=== PATIENT | male | born 1970 | race Caucasian/White ===

== ENCOUNTER 2017-02-03 20:24 | Inpatient (IN) | payer MEDICAID ==
[~2017-02-03] VITALS: Ht 182.9 cm; Wt 86.2 kg
[2017-02-03 20:31] VITALS: BP 120/76
[2017-02-03 22:40] LABS: HEMATOCRIT 27.8 % (36-52); HEMOGLOBIN 8.9 g/dL (12.0-18.0); MEAN CORPUSCULAR HEMOGLOBIN 28 pg (27-31); MEAN CORPUSCULAR HGB CONC 32 g/dL (33-37); MEAN CORPUSCULAR VOLUME 87 fL (80-94); PLATELET COUNT (AUTO) 135 K/uL (140-450); RED BLOOD CELL COUNT(AUTO) 3.18 MIL/uL (4.20-6.10); RED CELL DISTRIBUTION WIDTH 18.8 % (11.6-13.7); WHITE BLOOD COUNT (AUTO) 5.2 K/uL (4.8-10.8)
[2017-02-03 22:53] LABS: AMPHETAMINE, URINE POS. ng/ml (NEG <=1000); BARBITURATE, URINE NEG. ng/ml (NEG <=200); BENZODIAZEPINE, URINE NEG. ng/mL (NEG <=200); CANNABINOID, URINE NEG. ng/mL (NEG <=50); COCAINE, URINE NEG. ng/mL (NEG <=300); OPIATE, URINE NEG. ng/mL (NEG <=2000); PHENCYCLIDINE SCREEN,URINE NEG. ng/mL (NEG <=25)
[2017-02-03 22:53] LABS: ALCOHOL, BLOOD 71 mg/dL (<3)
[2017-02-03 22:54] LABS: BAND % (MANUAL) 0 % (0-8); EOSINOPHILS % (MANUAL) 7 % (0-4); LYMPHOCYTES % (MANUAL) 52 % (20-46); MONOCYTES % (MANUAL) 11 % (5-12); NEUTROPHILS % (MANUAL) 30 (43-65)
[2017-02-03 22:55] LABS: ACETAMINOPHEN < 0.5 ug/ml (10-30); SALICYLATE < 2.8 mg/dL (2.8-20.0)
[2017-02-03 22:58] LABS: ALBUMIN 2.2 g/dL (3.4-5.0); ANION GAP 7.6 (8-16); CALCIUM 7.1 mg/dL (8.5-10.1); CARBON DIOXIDE 26.6 mmol/L (21-32); CREATININE 0.9 mg/dL (0.7-1.3); INR 1.5 (0.8-1.2); PARTIAL THROMBOPLASTIN TIME 31.2 secs (22-35.6); POTASSIUM 3.2 mmol/L (3.5-5.1); PROTHROMBIN TIME 14.9 secs (10.8-13.4); TOTAL BILIRUBIN 0.6 mg/dL (0.0-1.0); TOTAL PROTEIN, SERUM 6.6 g/dL (6.4-8.2)
[2017-02-04] VITALS (7 sets, daily range): BP systolic 102–142; BP diastolic 59–93
[2017-02-04] MEDS ORDERED: ONDANSETRON 4 MG/2 ML VIAL IVP PRN
[2017-02-04] MEDS ORDERED: DOCUSATE SODIUM 100 MG GELCAP PO PRN
[2017-02-04] MEDS ORDERED: HYDROcodone/APAP 5/325 MG 1 TAB TAB PO PRN
[2017-02-04] MEDS ORDERED: ACETAMINOPHEN 325 MG TAB PO PRN
[2017-02-04] MEDS ORDERED: LISINOPRIL 10 MG TAB PO SCH (00:05)
[2017-02-04] MEDS ORDERED: METOPROLOL 25 MG TAB PO SCH (00:05)
[2017-02-04] MEDS ORDERED: hePARIN / DEXT 5% PREMIX 250 ML IV SCH (00:05)
[2017-02-04] MEDS ORDERED: HEPARIN PER PHARMACY MC PRN (00:05)
[2017-02-04] MEDS ORDERED: ATORVASTATIN 20 MG TAB PO SCH (00:05)
[2017-02-04] MEDS ORDERED: ECOTRIN 81 MG TABEC PO SCH (00:05)
[2017-02-04 00:27] LABS: APPEARANCE,URINE CLEAR (CLEAR); BILIRUBIN,URINE NEGATIVE (NEGATIVE); BLOOD, URINE NEGATIVE (NEGATIVE); COLOR,URINE YELLOW (YELLOW); LEUKOCYTE ESTERASE ,URINE NEGATIVE (NEGATIVE); NITRITE, URINE NEGATIVE (NEGATIVE); PROTEIN,URINE NEGATIVE (NEGATIVE); UGLUCOSE NEGATIVE (NEGATIVE); UROBILINOGEN,URINE 0.2 EU/dL (0.2 - 1)
[2017-02-04 00:49] LABS: BACTERIA,URINE None Seen /HPF (None Seen); RBC,URINE NONE SEEN /HPF (0-5); SQUAMOUS EPITHELIAL CELL,UR 0-3 (FEW) /LPF (0-3 (FEW)); WBC,URINE NONE SEEN /HPF (0-5)
[2017-02-04] MEDS ORDERED: POTASSIUM CHLORIDE 10 MEQ TABER PO SCH ×2 (01:00→09:24)
[2017-02-04 01:23] LABS: CHOL/HDL RATIO 5.8 (1-4.5); FREE T4 (FREE THYROXINE) 1.12 ng/dL (0.76-1.46); MAGNESIUM 1.7 mg/dL (1.8-2.4); THYROID STIMULATING HORMONE 1.83 uIU/mL (0.34-3.74)
[2017-02-04] MEDS: NACL 0.9% 1,000 ML IV SCH ×3 (01:23→16:13)
[2017-02-04] MEDS: MORPHINE SULFATE 2 MG/ML SYR IVP PRN ×4 (01:24→22:02)
[2017-02-04] MEDS: LEVOFLOXACIN 500 MG/D5W PREMIX 100 ML IV SCH (02:49)
[2017-02-04] MEDS ORDERED: PANTOPRAZOLE 40 MG TABEC PO SCH ×2 (07:41→09:00)
[2017-02-04] MEDS: METOPROLOL 25 MG TAB PO SCH ×2 (08:36→20:35)
[2017-02-04] MEDS: ATORVASTATIN 20 MG TAB PO SCH (08:36)
[2017-02-04] MEDS: LACTOBACILLUS RHAMNOSUS GG 1 EACH CAP PO SCH (08:36)
[2017-02-04] MEDS: ECOTRIN 81 MG TABEC PO SCH (08:36)
[2017-02-04] MEDS: LISINOPRIL 10 MG TAB PO SCH (08:37)
[2017-02-04] MEDS: MAGNESIUM OXIDE 400 MG TAB PO SCH ×2 (12:55→16:14)
[2017-02-05] VITALS (7 sets, daily range): BP systolic 102–124; BP diastolic 58–75
[2017-02-05] MEDS: NACL 0.9% 1,000 ML IV SCH ×4 (00:12→23:09)
[2017-02-05] MEDS: LEVOFLOXACIN 500 MG/D5W PREMIX 100 ML IV SCH (01:53)
[2017-02-05] MEDS: MORPHINE SULFATE 2 MG/ML SYR IVP PRN ×4 (05:55→23:04)
[2017-02-05 06:20] LABS: CREATININE 0.9 mg/dL (0.7-1.3)
[2017-02-05 06:30] LABS: ALBUMIN 1.9 g/dL (3.4-5.0); MAGNESIUM 1.6 mg/dL (1.8-2.4); PHOSPHORUS 3.1 mg/dL (2.5-4.9)
[2017-02-05] MEDS ORDERED: PANTOPRAZOLE 40 MG TABEC PO SCH (06:30)
[2017-02-05 06:36] LABS: ANION GAP 8.2 (8-16); CARBON DIOXIDE 25.9 mmol/L (21-32); POTASSIUM 4.1 mmol/L (3.5-5.1)
[2017-02-05 06:46] LABS: INR 1.5 (0.8-1.2); PROTHROMBIN TIME 14.8 secs (10.8-13.4)
[2017-02-05] MEDS: ECOTRIN 81 MG TABEC PO SCH (08:36)
[2017-02-05] MEDS: ATORVASTATIN 20 MG TAB PO SCH (08:36)
[2017-02-05] MEDS: LACTOBACILLUS RHAMNOSUS GG 1 EACH CAP PO SCH (08:36)
[2017-02-05] MEDS: MAGNESIUM OXIDE 400 MG TAB PO SCH ×3 (08:37→16:23)
[2017-02-05] MEDS: METOPROLOL 25 MG TAB PO SCH ×2 (09:00→21:18)
[2017-02-05] MEDS: LISINOPRIL 10 MG TAB PO SCH (09:00)
[2017-02-05] MEDS ORDERED: MAG SULF 2000 MG/WATER PREMIX 50 ML IV SCH (09:14)
[2017-02-05] MEDS ORDERED: ALUMINUM HYD/MAG/SIMETHICONE 30 ML UDC PO PRN (10:15)
[2017-02-05] MEDS ORDERED: DICYCLOMINE HCL LIQUID 10 MG/5 ML UDC PO PRN (10:15)
[2017-02-05] MEDS ORDERED: LIDOCAINE VISCOUS 2% 20 ML UDC PO PRN (10:15)
[2017-02-05] MEDS ORDERED: LORazepam 2 MG/ML VIAL IVP PRN (13:25)
[2017-02-05] MEDS: PANTOPRAZOLE 40 MG TABEC PO SCH (16:22)
[2017-02-05] MEDS: SUCRALFATE 1 GM TAB PO SCH (21:17)
[2017-02-06] VITALS: BP 127/79
[2017-02-06] MEDS: NACL 0.9% 1,000 ML IV SCH ×2 (00:27→08:24)
[2017-02-06 05:06] VITALS: BP 110/69
[2017-02-06] MEDS: MORPHINE SULFATE 2 MG/ML SYR IVP PRN ×2 (05:16→08:58)
[2017-02-06 06:21] LABS: CALCIUM 7.4 mg/dL (8.5-10.1); CREATININE 0.9 mg/dL (0.7-1.3)
[2017-02-06 06:22] LABS: INR 1.4 (0.8-1.2); PARTIAL THROMBOPLASTIN TIME 33.6 secs (22-35.6); PROTHROMBIN TIME 14.6 secs (10.8-13.4)
[2017-02-06 06:28] LABS: ANION GAP 6.2 (8-16); POTASSIUM 4.2 mmol/L (3.5-5.1)
[2017-02-06 06:29] LABS: ALBUMIN 1.9 g/dL (3.4-5.0); CALCIUM 7.3 mg/dL (8.5-10.1); CREATININE 0.9 mg/dL (0.7-1.3); MAGNESIUM 1.8 mg/dL (1.8-2.4); TOTAL BILIRUBIN 0.7 mg/dL (0.0-1.0); TOTAL PROTEIN, SERUM 6.1 g/dL (6.4-8.2)
[2017-02-06 06:39] LABS: ANION GAP 7.6 (8-16); CARBON DIOXIDE 27.7 mmol/L (21-32); POTASSIUM 4.3 mmol/L (3.5-5.1)
[2017-02-06] MEDS: ECOTRIN 81 MG TABEC PO SCH (08:38)
[2017-02-06] MEDS: PANTOPRAZOLE 40 MG TABEC PO SCH (08:38)
[2017-02-06] MEDS: SUCRALFATE 1 GM TAB PO SCH (08:38)
[2017-02-06] MEDS: MAGNESIUM OXIDE 400 MG TAB PO SCH ×2 (08:38→13:22)
[2017-02-06] MEDS: ATORVASTATIN 20 MG TAB PO SCH (08:38)
[2017-02-06] MEDS: METOPROLOL 25 MG TAB PO SCH (08:40)
[2017-02-06] MEDS: LISINOPRIL 10 MG TAB PO SCH (09:00)
[2017-02-06] MEDS: LACTOBACILLUS RHAMNOSUS GG 1 EACH CAP PO SCH (09:50)
[2017-02-06] MEDS ORDERED: PANT40EC PO (10:32)
== END 2017-02-06 13:20 | disposition home or self-care (01) | DRG 243 ==
LOC: MED 20:24 → EEVIPCON 20:24 → EDBD 20:24 → MTU 02-04
PROVIDERS: ADMIT Student in an Organized Health Care Education/Training Program; ATTEND Student in an Organized Health Care Education/Training Program
DX: K21.9 Gastro-esophageal reflux disease without esophagitis (principal); E43 Unspecified severe protein-calorie malnutrition; K70.30 Alcoholic cirrhosis of liver without ascites; E87.1 Hypo-osmolality and hyponatremia; F15.250 Other stimulant dependence with stimulant-induced psychotic disorder with delusions; E83.42 Hypomagnesemia; E83.51 Hypocalcemia; R74.0 Nonspecific elevation of levels of transaminase and lactic acid dehydrogenase [LDH]; F10.10 Alcohol abuse, uncomplicated; Y90.3 Blood alcohol level of 60-79 mg/100 ml; E87.6 Hypokalemia; D64.9 Anemia, unspecified; K80.20 Calculus of gallbladder without cholecystitis without obstruction; J40 Bronchitis, not specified as acute or chronic; Z59.0 Homelessness; Z68.25 Body mass index [BMI] 25.0-25.9, adult; Z71.41 Alcohol abuse counseling and surveillance of alcoholic; Z71.51 Drug abuse counseling and surveillance of drug abuser
CPT/HCPCS: 36415; 70450; 71010; 76705; 80048; 80053; 80305; 81001; 82040; 82140; 82150; 83036; 83605; 83690; 83735; 83880; 84100; 84439; 84443; 84484; 85025; 85610; 85730; 87040; 87081; 87086; 93005; 93880; 99285; G0480; G0482; J1644; J1956; J2270; J3475; J7030; Q0092